=== PATIENT | male | born 1950 | race African-American/Black ===

== ENCOUNTER 2019-07-27 13:20 | Emergency (ER) | payer OTHER ==
[~2019-07-27] VITALS: Ht 180.3 cm; Wt 68.0 kg
--- NOTE | 2019-07-27 13:53 | EKG ---
[facility] [address] [place] [address] Test Date: 2019-07-27 Test Time: 13:46:15 Pat Name: BLANQUITA GARCIA Department: Room: Gender: M Inspector Insulation: : 1950 Requested By: EVERARDO ANTHONY Order Number: [id number] Reading MD: Measurements Intervals [place] Rate: 90 P: 79 HI: 180 QRS: 62 QRSD: 78 T: 66 QT: 360 QTc: 444 Interpretive Statements SINUS RHYTHM LEFT ATRIAL ABNORMALITY QRS(T) CONTOUR ABNORMALITY CANNOT RULE OUT ANTEROSEPTAL MYOCARDIAL DAMAGE ST-T ELEVATION, CONSIDER ACUTE ANTERIOR INFARCT ABNORMAL ECG No previous ECG available for comparison
[2019-07-27 13:58] VITALS: BP 175/92
[2019-07-27 14:06] LABS: BASO % 1 % (0-3); EOS % 1 % (0-3); HEMATOCRIT 35.1 % (39.0-53.0); HEMOGLOBIN 11.6 g/dL (13.0-17.5); LYMPH # 1.3 x10^3/uL (1.0-4.8); LYMPH % 44 % (24-48); MEAN CORPUSCULAR HEMOGLOBIN 29 pg (25-35); MEAN CORPUSCULAR HGB CONC 33 g/dL (31-37); MEAN CORPUSCULAR VOLUME 89 fL (79-100); MONO # 0.5 x10^3/uL (0.0-1.1); MONO % 18 % (0-9); NEUT % 36 % (31-73); PLATELET COUNT 260 x10^3/uL (140-400); RED BLOOD COUNT 3.94 x10^6/uL (4.30-5.70); RED CELL DISTRIBUTION WIDTH 14.1 % (11.5-14.5); WHITE BLOOD COUNT 2.9 x10^3/uL (4.0-11.0)
[2019-07-27 14:15] LABS: CALCIUM 8.9 mg/dL (8.5-10.1); GFR 89.9; POTASSIUM 3.6 mmol/L (3.5-5.1)
[2019-07-27 14:19] LABS: PROTHROMBIN TIME PATIENT 13.1 SEC (11.7-14.0)
[2019-07-27 14:22] LABS: ALBUMIN 2.8 g/dL (3.4-5.0); ALBUMIN/GLOBULIN RATIO 0.7 (1.0-1.7); TOTAL BILIRUBIN 0.4 mg/dL (0.2-1.0); TOTAL PROTEIN 6.9 g/dL (6.4-8.2)
[2019-07-27 14:35] LABS: BILIRUBIN,URINE NEGATIVE (NEG); CLARITY,URINE CLEAR; COLOR,URINE YELLOW; NITRITE,URINE NEGATIVE (NEG); PH,URINE 7.5; PROTEIN,URINE NEGATIVE (NEG-TRACE)
[2019-07-27 14:42] LABS: BACTERIA,URINE 0 /HPF (0-FEW); RBC,URINE OCC /HPF (0-2); SQUAMOUS EPITHELIAL CELL,UR FEW /LPF
[2019-07-27 14:44] LABS: BARBITURATES NEG (NEG); BENZODIAZEPINES NEG (NEG); CANNABINOIDS NEG (NEG); COCAINE NEG (NEG); METHADONE NEG (NEG); OPIATES NEG (NEG); PHENCYCLIDINE NEG (NEG)
--- NOTE | 2019-07-27 14:44 | RAD ---
PQRS Compliance Statement: One or more of the following individualized dose reduction techniques were utilized for this examination: 1. Automated exposure control 2. Adjustment of the mA and/or kV according to patient size 3. Use of iterative reconstruction technique CT head and cervical spine without contrast 07/27/2019 1:24 PM INDICATION: Fall COMPARISON: None available TECHNIQUE: Multiple axial CT images of the head were obtained from skull base through the vertex without intravenous contrast. Multiple axial CT images of the cervical spine were obtained without intravenous contrast. Coronal and sagittal reformats are provided. FINDINGS: Head: Small scalp hematoma identified along the posterior parietal region measuring 7 mm in maximal thickness. No underlying calvarial defect is identified. Ventricles, sulci and basal cisterns are within normal limits. There is no hydrocephalus. Ortega-white matter differentiation is normal. There is no acute intracranial hemorrhage. There is no mass, mass effect or midline shift. Posterior fossa is normal in appearance. Visualized portions of the orbits are normal. Mild mucosal thickening of the left maxillary sinus. Mastoid air cells are well aerated. Cervical spine: Alignment of the cervical spine is normal. Skull base is intact. Craniocervical junction is normal in appearance. Atlantoaxial articulation is normal. Vertebral body heights are maintained without evidence for acute fracture. There is congenital narrowing of the spinal canal secondary to shortened pedicles. Moderate disc height loss at C5-C6 with moderate intramarginal osteophytosis. At C5-C6, there is a posterior discussed by complex with severe right and moderate left facet arthropathy and moderate right and mild left uncovertebral joint disease resulting in severe right and moderate left neuroforaminal stenosis with mild to moderate spinal canal stenosis. There is no definite epidural hematoma. There is no prevertebral soft tissue swelling. Thyroid gland is normal in appearance. Visualized portions of the lung apices are normal without evidence for suspicious pulmonary nodule or infiltrate. IMPRESSION: 1. No acute intracranial hemorrhage. Small parietal scalp hematoma without underlying calvarial defect. 2. No acute fracture or malalignment of the cervical spine. Moderate cervical spondylosis. Electronically signed by: Claritza Guevara MD (07/27/2019 2:41 PM) [facility]
[2019-07-27 14:45] LABS: AMPHETAMINE/METHAMPHETAMINE NEG (NEG)
--- NOTE | 2019-07-27 14:47 | RAD ---
PQRS Compliance Statement: One or more of the following individualized dose reduction techniques were utilized for this examination: 1. Automated exposure control 2. Adjustment of the mA and/or kV according to patient size 3. Use of iterative reconstruction technique CT lumbar spine without contrast 07/27/2019 INDICATION: Fall. COMPARISON: None available. TECHNIQUE: Multiple axial CT images of the lumbar spine are obtained without intravenous contrast. Coronal and sagittal reformats are provided. FINDINGS: There is minimal retrolisthesis of L5 on S1. Moderate disc height loss at L5-S1 with endplate sclerosis and marginal osteophytosis with endplate remodeling. Mild anterior marginal osteophytosis noted throughout the lumbar spine. Disc heights are otherwise maintained. No acute fracture is identified. Abdominal aorta is normal in caliber. No suspicious retroperitoneal abnormality is identified although evaluation is limited by lack of intravenous contrast and intraperitoneal fat. At L4-L5, there is a mild circumferential disc bulge asymmetric to the right. There is moderate facet arthropathy ligamentum flavum infolding. There is moderate bilateral neuroforaminal stenosis and moderate spinal canal stenosis. At L5-S1, there is a posterior disc osteophyte complex with moderate facet arthropathy and moderate to severe bilateral neuroforaminal stenosis with mild spinal canal stenosis. IMPRESSION: No acute fracture of the lumbar spine. Moderate lumbar spondylosis at L4-L5 and L5-S1, as described in detail above. Minimal retrolisthesis of L5 on S1. Electronically signed by: Claritza Guevara MD (07/27/2019 2:44 PM) [facility]
--- NOTE | 2019-07-27 15:00 | PHYS DOC ---
Past Medical History Past Medical History: Asthma Additional Past Medical Histor: SHOT X2 Past Surgical History: No Surgical History Alcohol Use: Occasionally Drug Use: None Adult General Chief Complaint Chief Complaint: MECHANICAL FALL HPI HPI Patient is a 69 year old male who presents via EMS with complaining of a fall. Patient states he had a fall while he going [place] from at least 2 steps without loss of consciousness. Patient complaining of pain in his head and neck and his back and later on complaining of pain in his chest. Patient was very agitated and changing location of his pain frequently.EMS reported that [employer] video did not show any fall patient became anxious when talking about his fall pattern. Review of Systems Review of Systems Constitutional: Denies fever or chills [] Eyes: Denies change in visual acuity, redness, or eye pain [] HENT: Denies nasal congestion or sore throat [] Respiratory: Denies cough or shortness of breath [] Cardiovascular: No additional information not addressed in HPI [] GI: Denies abdominal pain, nausea, vomiting, bloody stools or diarrhea [] : Denies dysuria or hematuria [] Musculoskeletal: Reports back pain and joint pain Integument: Denies rash or skin lesions [] Neurologic: Denies headache, focal weakness or sensory changes [] Endocrine: Denies polyuria or polydipsia [] All other systems were reviewed and found to be within normal limits, except as documented in this note. Physical Exam Physical Exam Constitutional: Well nourished,mild distress, non-toxic appearance, anxious. [] HENT: Normocephalic, atraumatic Eyes: PERRLA, EOMI, conjunctiva normal, no discharge. [] Neck: Normal range of motion, no tenderness, supple, no stridor. [] Cardiovascular:Heart rate regular rhythm, no murmur [] Lungs & Thorax: Bilateral breath sounds clear to auscultation [] Abdomen: Bowel sounds normal, soft, no tenderness, no masses, no pulsatile masses. [] Skin: Warm, dry, no erythema, no rash. [] Back: No tenderness, no CVA tenderness. [] Extremities: No tenderness, no cyanosis, no clubbing, ROM intact, no edema. [] Neurologic: Alert and oriented X 3, normal motor function, normal sensory function, no focal deficits noted. [] Psychologic: Affect anxious, mood normal. [] Current Patient Data Vital Signs Vital Signs Date Time Temp Pulse Resp B/P (MAP) Pulse Ox O2 Delivery O2 Flow Rate FiO2 07/27/19 13:58 91 98 07/27/19 13:25 97.9 19 187/105 (132) Room Air 97.9 Lab Values Laboratory Tests Test 07/27/19 13:56 07/27/19 14:25 White Blood Count 2.9 x10^3/uL (4.0-11.0) L Red Blood Count 3.94 x10^6/uL (4.30-5.70) L Hemoglobin 11.6 g/dL (13.0-17.5) L Hematocrit 35.1 % (39.0-53.0) L Mean Corpuscular Volume 89 fL (79-100) Mean Corpuscular Hemoglobin 29 pg (25-35) Mean Corpuscular Hemoglobin Concent 33 g/dL (31-37) Red Cell Distribution Width 14.1 % (11.5-14.5) Platelet Count 260 x10^3/uL (140-400) Neutrophils (%) (Auto) 36 % (31-73) Lymphocytes (%) (Auto) 44 % (24-48) Monocytes (%) (Auto) 18 % (0-9) H Eosinophils (%) (Auto) 1 % (0-3) Basophils (%) (Auto) 1 % (0-3) Neutrophils # (Auto) 1.0 x10^3/uL (1.8-7.7) L Lymphocytes # (Auto) 1.3 x10^3/uL (1.0-4.8) Monocytes # (Auto) 0.5 x10^3/uL (0.0-1.1) Eosinophils # (Auto) 0.0 x10^3/uL (0.0-0.7) Basophils # (Auto) 0.0 x10^3/uL (0.0-0.2) Prothrombin Time 13.1 SEC (11.7-14.0) Prothrombin Time INR 1.0 (0.8-1.1) Sodium Level 143 mmol/L (136-145) Potassium Level 3.6 mmol/L (3.5-5.1) Chloride Level 107 mmol/L (98-107) Carbon Dioxide Level 28 mmol/L (21-32) Anion Gap 8 (6-14) Blood Urea Nitrogen 6 mg/dL (8-26) L Creatinine 1.0 mg/dL (0.7-1.3) Estimated GFR (Cockcroft-Gault) 89.9 BUN/Creatinine Ratio 6 (6-20) Glucose Level 87 mg/dL (70-99) Calcium Level 8.9 mg/dL (8.5-10.1) Total Bilirubin 0.4 mg/dL (0.2-1.0) Aspartate Amino Transferase (AST) 252 U/L (15-37) H Alanine Aminotransferase (ALT) 207 U/L (16-63) H Alkaline Phosphatase 105 U/L (46-116) Creatine Kinase 136 U/L (39-308) Troponin I Quantitative 0.017 ng/mL (0.000-0.055) Total Protein 6.9 g/dL (6.4-8.2) Albumin 2.8 g/dL (3.4-5.0) L Albumin/Globulin Ratio 0.7 (1.0-1.7) L Ethyl Alcohol Level < 10 mg/dL (0-10) Urine Collection Type Unknown Urine Color Yellow Urine Clarity Clear Urine pH 7.5 Urine Specific [place] 1.015 Urine Protein Negative mg/dL (NEG-TRACE) Urine Glucose (UA) Negative mg/dL (NEG) Urine Ketones (Stick) Negative mg/dL (NEG) Urine Blood Negative (NEG) Urine Nitrite Negative (NEG) Urine Bilirubin Negative (NEG) Urine Urobilinogen Dipstick 1.0 mg/dL (0.2 mg/dL) Urine Leukocyte Esterase Negative (NEG) Urine RBC Occ /HPF (0-2) Urine WBC 1-4 /HPF (0-4) Urine Squamous Epithelial Cells Few /LPF Urine Bacteria 0 /HPF (0-FEW) Urine Mucus Mod /LPF Urine Opiates Screen Neg (NEG) Urine Methadone Screen Neg (NEG) Urine Barbiturates Neg (NEG) Urine Phencyclidine Screen Neg (NEG) Urine Amphetamine/Methamphetamine Neg (NEG) Urine Benzodiazepines Screen Neg (NEG) Urine Cocaine Screen Neg (NEG) Urine Cannabinoids Screen Neg (NEG) Urine Ethyl Alcohol Neg (NEG) Laboratory Tests 07/27/19 13:56 Laboratory Tests 07/27/19 13:56 EKG EKG EKG interpreted by me. EKG at 1346 showed normal sinus rhythm at rate of 91, left atrial abnormality, poor R-wave progress in anteroseptal leads, no acute ST and T-wave elevation. Radiology/Procedures Radiology/Procedures [][facility] [address] [place] [address] IMAGING REPORT Signed PATIENT: BLANQUITA GARCIA JACCOUNT: [id number] : 1950 LOCATION: ER AGE: 69 SEX: M EXAM STATUS: REG ER ORD. PHYSICIAN: EVERARDO ANTHONY MD REASON: fall PROCEDURE: CT HEAD AND CERVICAL SPINE WO PQRS Compliance Statement: One or more of the following individualized dose reduction techniques were utilized for this examination: 1. Automated exposure control 2. Adjustment of the mA and/or kV according to patient size 3. Use of iterative reconstruction technique CT head and cervical spine without contrast 07/27/2019 1:24 PM INDICATION: Fall COMPARISON: None available TECHNIQUE: Multiple axial CT images of the head were obtained from skull base through the vertex without intravenous contrast. Multiple axial CT images of the cervical spine were obtained without intravenous contrast. Coronal and sagittal reformats are provided. FINDINGS: Head: Small scalp hematoma identified along the posterior parietal region measuring 7 mm in maximal thickness. No underlying calvarial defect is identified. Ventricles, sulci and basal cisterns are within normal limits. There is no hydrocephalus. Ortega-white matter differentiation is normal. There is no acute intracranial hemorrhage. There is no mass, mass effect or midline shift. Posterior fossa is normal in appearance. Visualized portions of the orbits are normal. Mild mucosal thickening of the left maxillary sinus. Mastoid air cells are well aerated. Cervical spine: Alignment of the cervical spine is normal. Skull base is intact. Craniocervical junction is normal in appearance. Atlantoaxial articulation is normal. Vertebral body heights are maintained without evidence for acute fracture. There is congenital narrowing of the spinal canal secondary to shortened pedicles. Moderate disc height loss at C5-C6 with moderate intramarginal osteophytosis. At C5-C6, there is a posterior discussed by complex with severe right and moderate left facet arthropathy and moderate right and mild left uncovertebral joint disease resulting in severe right and moderate left neuroforaminal stenosis with mild to moderate spinal canal stenosis. There is no definite epidural hematoma. There is no prevertebral soft tissue swelling. Thyroid gland is normal in appearance. Visualized portions of the lung apices are normal without evidence for suspicious pulmonary nodule or infiltrate. IMPRESSION: 1. No acute intracranial hemorrhage. Small parietal scalp hematoma without underlying calvarial defect. 2. No acute fracture or malalignment of the cervical spine. Moderate cervical spondylosis. Electronically signed by: Harish Cruz MD (07/27/2019 2:41 PM) [facility] [place] DICTATED and SIGNED BY: HARISH CRUZ MD DATE: 07/27/19 1441 Course & Med Decision Making Course & Med Decision Making Evaluation of patient in ER showed 69-year-old male patient [place] by [place]. Patient was very agitated and r emoved his c-collar and left AMA and walked outside of ER without problem Dragon Disclaimer Dragon Disclaimer This electronic medical record was generated, in whole or in part, using a voice recognition dictation system. Departure Departure Impression: Primary Impression: Left against medical advice Additional Impressions: Fall Head ache Neck pain Back pain Anxiety Disposition: 07 AGAINST MEDICAL ADVICE (at 1455) Condition: STABLE Referrals: NO PCP (PCP) Problem Qualifiers Additional Impressions: Fall Encounter type: initial encounter Qualified Codes: W19.XXXA - Unspecified fall, initial encounter Head ache Headache type: unspecified Headache chronicity pattern: unspecified pattern Intractability: not intractable Qualified Codes: R51 - Headache Back pain Back pain location: low back pain Chronicity: unspecified Back pain laterality: unspecified Sciatica presence: unspecified whether sciatica present Qualified Codes: M54.5 - Low back pain EVERARDO ANTHONY MD Jul 27, 2019 15:00
== END 2019-07-27 15:30 | disposition left against medical advice (07) ==
LOC: ER 13:20
DX: R51 Headache (principal); M54.2 Cervicalgia; M54.5 Low back pain; R07.89 Other chest pain; J45.909 Unspecified asthma, uncomplicated; W10.8XXA Fall (on) (from) other stairs and steps, initial encounter; Y93.89 Activity, other specified; Y92.89 Other specified places as the place of occurrence of the external cause; Y99.8 Other external cause status
CPT/HCPCS: 36415; 70450; 72125; 72131; 80053; 80307; 81001; 82550; 84484; 85025; 85610; 93005; 99285; G0480